=== PATIENT | female | born 1990 | race Caucasian/White ===

== ENCOUNTER 2017-04-15 10:15 | Emergency (ER) | payer MEDICAID ==
[2017-04-15] MEDS ORDERED: Sodium Chloride 0.9% 1,000 ML IV ONE ×2 (10:36→12:42)
[2017-04-15 10:54] LABS: BASO # 0.1 K/uL (0.0-0.2); BASO % 0.5 % (0.0-2.0); EOS # 0.1 K/uL (0.0-0.7); EOS % 0.8 % (0.0-4.0); HEMATOCRIT 37.8 % (34.0-47.0); LYMPH % 21.3 % (20.0-40.0); MEAN CELL VOLUME 86.9 fL (81.0-99.0); MEAN CORPUSCULAR HEMOGLOBIN 28.7 pg (27.0-31.0); MEAN CORPUSCULAR HGB CONC 33.1 g/dL (33.0-37.0); MEAN PLATELET VOLUME 8.2 fL (7.2-11.7); MONO # 0.8 K/uL (0.0-0.8); MONO % 5.3 % (0.0-10.0); RED CELL DISTRIBUTION WIDTH 13.2 % (11.5-14.5); WHITE BLOOD COUNT 14.2 K/uL (4.8-10.8)
[2017-04-15] MEDS ORDERED: Sodium Chloride 0.9% 1,000 ML ONE ×2 (10:58→13:11)
[2017-04-15 11:01] LABS: CHLORIDE 106 mmol/L (98-107)
[2017-04-15 11:02] LABS: POTASSIUM 3.8 mmol/L (3.6-5.2); SODIUM 143 mmol/L (132-148)
[2017-04-15 11:04] LABS: ALB/GLOB RATIO 1.1 (1.0-2.1); ALKALINE PHOSPHATASE 89 U/L (38-126); ALT/SGPT 25 U/L (9-52); AST/SGOT 20 U/L (14-36); BILIRUBIN,TOTAL 0.5 mg/dL (0.2-1.3); BLOOD UREA NITROGEN 16 mg/dL (7-17); CARBON DIOXIDE 19 mmol/L (22-30); GFR AFRICAN-AMERICAN > 60; GLUCOSE,RANDOM 113 mg/dL (65-105); TOTAL PROTEIN 8.4 g/dL (6.3-8.3)
[2017-04-15 11:05] LABS: CALCIUM 9.2 mg/dl (8.6-10.4)
--- NOTE | 2017-04-15 11:20 | C.PDOC ---
History Of Present Illness 26-year-old female, presents to the emergency department with complaints of left flank pain onset yesterday. Denies nausea/vomiting, fevers or chills. Patient reports constipation. Time Seen by Provider: 04/15/17 10:23 Chief Complaint (Nursing): Back Pain History Per: Patient History/Exam Limitations: no limitations Onset/Duration Of Symptoms: Days Current Symptoms Are (Timing): Still Present Severity: Mild Previous Symptoms: Back Pain Recent travel outside of the [place]: No Past Medical History Reviewed: Historical Data, Nursing Documentation, Vital Signs Vital Signs: Last Vital Signs Temp 98.1 F 04/15/17 13:53 Pulse 85 04/15/17 13:53 Resp 20 04/15/17 13:53 BP 124/76 04/15/17 13:53 Pulse Ox 93 L 04/15/17 14:29 - Medical History PMH: Gastritis, Hypercholesterolemia, Seizures Surgical History: No Surg Hx Family History: States: No Known Family Hx - Social History Hx Tobacco Use: Yes Hx Alcohol Use: Yes Hx Substance Use: No - Immunization History Hx Tetanus Toxoid Vaccination: No Hx Influenza Vaccination: No Hx Pneumococcal Vaccination: No Review Of Systems Except As Marked, All Systems Reviewed And Found Negative. Constitutional: Negative for: Fever Respiratory: Negative for: Shortness of Breath Gastrointestinal: Negative for: Nausea, Vomiting Musculoskeletal: Positive for: Back Pain (left flank) Physical Exam - Physical Exam Appears: Non-toxic, No Acute Distress Skin: Warm, Dry, No Rash Head: Atraumatic Eye(s): bilateral: Normal Inspection, PERRL, EOMI Nose: Normal Neck: Normal ROM Cardiovascular: Rhythm Regular Respiratory: Normal Breath Sounds, No Accessory Muscle Use Gastrointestinal/Abdominal: Tenderness (left abdomen) Back: CVA Tenderness (Left) Extremity: Normal ROM Neurological/Psych: Oriented x3, Normal Speech Gait: Steady ED Course And Treatment - Laboratory Results Result Diagrams: 04/15/17 10:49 04/15/17 10:49 Lab Interpretation: Abnormal Urine POC: Negative O2 Sat by Pulse Oximetry: 93 - CT Scan/US No standard instances Other Rad Studies (CT/US): Read By Radiologist, Radiology Report Reviewed CT/US Interpretation: FINDINGS: LOWER THORAX: The lung bases are clear. LIVER : Unremarkable. No gross lesion or ductal dilatation. GALLBLADDER AND BILE DUCTS: There are no calcified gallstones. PANCREAS: The pancreas is normal in size. No gross lesion or ductal dilatation. SPLEEN: The spleen is normal in size. ADRENALS: Normal in size without discrete nodule. KIDNEYS AND URETERS: The right kidney is normal in size without hydronephrosis or nephrolithiasis. There is mild enlargement of the left kidney with mild perinephric fat stranding. No evidence of hydronephrosis or nephrolithiasis. The ureters are not dilated. No evidence of obstructive uropathy. VASCULATURE: No aortic aneurysm. BOWEL: The small bowel loops are normal in caliber. There is moderate amount of stool in the ascending colon. APPENDIX: The appendix is not distinctly identified however there are no inflammatory changes in the right lower quadrant. PERITONEUM: No free fluid. No free air. LYMPH NODES: No enlarged lymph nodes. BLADDER: Unremarkable. REPRODUCTIVE: Unremarkable. BONES: No acute fracture. OTHER FINDINGS: None. IMPRESSION: 1. Asymmetric enlargement of the left kidney with mild perinephric fat stranding. No evidence of hydronephrosis, nephrolithiasis or obstructive uropathy. Pyelonephritis cannot be excluded on noncontrast CT examination. Please correlate with urine analysis and CVA tenderness. 2. No other significant abnormality. Progress Note: Treated with IVF NSS and toradol 30 mg IV. On re-evaluation continues to C/O left abdominal pain and constipation. Treated with rocephin 1 GM IV and ultram 50 mg PO. On re-evaluation feeling better, in no distress Reassessment Condition: Improved Disposition Counseled Patient/Family Regarding: Studies Performed, Diagnosis, Need For Followup, Rx Given - Disposition Referrals: Beto Pearce MD [Staff Provider] - Disposition: HOSPITALIZED Disposition Time: 14:30 Condition: STABLE Additional Instructions: Follow up with PMD in 2 days for further evaluation Prescriptions: Cephalexin [cephalexin] 500 mg PO Q6 #18 cap Naproxen 500 mg PO BID PRN #10 ect PRN Reason: Pain, Mild (1-3) Polyethylene Glycol 3350 [Miralax] 17 gm PO DAILY PRN #10 [email or web address] PRN Reason: Constipation Instructions: Constipation (ED), Acute Pyelonephritis (ED) Forms: [employer] (Montenegrin) - POA Present On Arrival: None - Clinical Impression Clinical Impression: Constipation, Pyelonephritis - Scribe Statement The provider has reviewed the documentation as recorded by the Scribe (Krystle Dia) All medical record entries made by the Scribe were at my direction and personally dictated by me. I have reviewed the chart and agree that the record accurately reflects my personal performance of the history, physical exam, medical decision making, and the department course for this patient. I have also personally directed, reviewed, and agree with the discharge instructions and disposition.
[2017-04-15 11:25] LABS: RBC URINE 104 /hpf (0-3); URINE BACTERIA RARE (<OCC); URINE BILIRUBIN NEGATIVE (NEGATIVE); URINE BLOOD 3+ (NEGATIVE); URINE COLOR Yellow (YELLOW); URINE GLUCOSE (UA) NORMAL (Normal); URINE KETONE NEGATIVE (NEGATIVE); URINE LEUKOCYTE ESTERASE NEG Leu/uL (Negative); URINE PROTEIN 1+ mg/dL (NEGATIVE); URINE UROBILINOGEN NORMAL mg/dL (0.2-1.0); WBC URINE 9 /hpf (0-5)
[2017-04-15] MEDS ORDERED: Iohexol 240 (50 ml) ONE (11:39)
--- NOTE | 2017-04-15 12:40 | CT ---
PROCEDURE: CT Abdomen and Pelvis without intravenous contrast HISTORY: Pain COMPARISON: 11/27/2011 TECHNIQUE: CT scan of the abdomen and pelvis was performed without administration of intravenous contrast. Oral contrast was not administered. Coronal and sagittal reformatted images were obtained.. Radiation dose: Total exam DLP = 855.79 mGy-cm. This CT exam was performed using one or more of the following dose reduction techniques: Automated exposure control, adjustment of the mA and/or kV according to patient size, and/or use of iterative reconstruction technique. FINDINGS: LOWER THORAX: The lung bases are clear. LIVER: Unremarkable. No gross lesion or ductal dilatation. GALLBLADDER AND BILE DUCTS: There are no calcified gallstones. PANCREAS: The pancreas is normal in size. No gross lesion or ductal dilatation. SPLEEN: The spleen is normal in size. ADRENALS: Normal in size without discrete nodule. KIDNEYS AND URETERS: The right kidney is normal in size without hydronephrosis or nephrolithiasis. There is mild enlargement of the left kidney with mild perinephric fat stranding. No evidence of hydronephrosis or nephrolithiasis. The ureters are not dilated. No evidence of obstructive uropathy. VASCULATURE: No aortic aneurysm. BOWEL: The small bowel loops are normal in caliber. There is moderate amount of stool in the ascending colon. APPENDIX: The appendix is not distinctly identified however there are no inflammatory changes in the right lower quadrant. PERITONEUM: No free fluid. No free air. LYMPH NODES: No enlarged lymph nodes. BLADDER: Unremarkable. REPRODUCTIVE: Unremarkable. BONES: No acute fracture. OTHER FINDINGS: None. IMPRESSION: 1. Asymmetric enlargement of the left kidney with mild perinephric fat stranding. No evidence of hydronephrosis, nephrolithiasis or obstructive uropathy. Pyelonephritis cannot be excluded on noncontrast CT examination. Please correlate with urine analysis and CVA tenderness. 2. No other significant abnormality.
[2017-04-15] MEDS ORDERED: cefTRIAXone IV 1 gm in Dextros 50 ML IV ONE (12:41)
[2017-04-15] MEDS ORDERED: cefTRIAXone IV 1 gm in Dextros 50 ML IVPB ONE (13:11)
[2017-04-15 13:53] VITALS: BP 124/76; PULSE 85; RESP 20; TEMP 98.1
[2017-04-15 14:28] VITALS: O2SAT 93
== END 2017-04-15 15:01 | disposition short-term general hospital (02) ==
LOC: C.ER 10:15
DX: N12 Tubulo-interstitial nephritis, not specified as acute or chronic (principal); K59.00 Constipation, unspecified
CPT/HCPCS: 74176; 80053; 81001; 83690; 84703; 85025; 96361; 96365; 96375; 99285; J0696; J1885; J7040